=== PATIENT | female | born 1985 | race American Indian/Alaskan Native ===

== ENCOUNTER 2016-06-16 07:39 | Emergency (ER) | payer MEDICARE, MEDICAID ==
[2016-06-16 07:54] VITALS: BP 139/81
--- NOTE | 2016-06-16 11:44 | Emergency Department Report ---
Entered by KIMO CURTIS, acting as scribe for LINUS SCHMITZ PA. - General Chief Complaint: Upper Respiratory Infection Stated Complaint: COUGH Time Seen by Provider: 06/16/16 11:15 Source: patient Mode of arrival: Ambulatory Limitations: No Limitations - History of Present Illness Initial Comments: 30 y/o female presents to the ED c/o non-productive cough beginning 2 weeks ago. The patient states she had the flu at the time of onset, but the other symptoms have resolved. Associated symptom of headache with the cough, but she denies fever, chills, nausea, vomiting, diarrhea, abdominal pain, chest pain, SOB, wheezing, and numbness. MD Complaint: cough (non-productive) -: week(s) (2 weeks ago) Severity: moderate Consistency: constant Improves With: nothing Worsens With: nothing Context: other (patient had the flu 2 weeks ago, other symptoms have resolved, cough continues to linger) Associated Symptoms: headache (with cough), cough. denies: fever, chills, rhinorrhea, nasal congestion, sore throat, chest pain, shortness of breath, abdominal pain, nausea, vomiting, diarrhea, ear pain Treatments Prior to Arrival: none - Related Data Previous Rx's Medication Instructions Recorded Last Taken Type Promethazine /Codeine 10 ml PO Q6H PRN #150 ml 06/16/16 Unknown Rx [Phenergan/Codeine 6.25-10 mg/5 ml] Allergies Allergy/AdvReac Type Severity Reaction Status Date / Time No Known Allergies Allergy Verified 06/16/16 07:50 ED Review of Systems Constitutional: denies: chills, fever ENT: denies: ear pain, throat pain Respiratory: cough (non-productive). denies: shortness of breath, wheezing Cardiovascular: denies: chest pain Gastrointestinal: denies: abdominal pain, nausea, vomiting, diarrhea Neurological: headache (with cough). denies: weakness, numbness ED Past Medical Hx - Past Medical History Additional medical history: morbid obesity - Surgical History Additional Surgical History: C SECTION x 2 - Social History Smoking Status: Current Every Day Smoker Substance Use Type: Alcohol - Medications Home Medications: Home Medications Medication Instructions Recorded Confirmed Last Taken Type Promethazine /Codeine 10 ml PO Q6H PRN #150 ml 06/16/16 Unknown Rx [Phenergan/Codeine 6.25-10 mg/5 ml] ED Physical Exam - General Limitations: No Limitations - Other Other exam information: GENERAL: Patient is alert and oriented x 3. No apparent distress, normal gait, atraumatic. HEAD: Head is normocephalic and atraumatic. EYES: Extraocular movements are intact. Pupils are equal, round, and reactive to light and accommodation. EARS: Symmetrical, atraumatic, non tender, ear canal clear with moderate cerumen , tympanic membrane non inflamed. Gross auditory nml bilaterally. NOSE: Nose symmetrical, nontender. Nares appeared normal. MOUTH:Mouth is well hydrated and without lesions. Mucous membranes are moist. Uvula midline. Tongue not elevated. Posterior pharynx clear, no exudate or lesions. Tonsils are not erythematous or swollen. Patent airway. NECK: Supple. Non edematous, no carotid bruits. No lymphadenopathy or thyromegaly. LUNGS: Symmetrical with respiration. No wheezing, rales or crackles, CTAB. Noted the patient has a dry cough at the time of the exam. Patient is not in any respiratory distress. HEART: Regular rate and rhythm with normal S1/S2 present. No murmurs, rubs, or gallops. ABDOMEN: Soft, nondistended. Nontender to palpation on all quadrants. No organomegaly was noted. Positive bowel sounds. No CVA tenderness. EXTREMITIES/MUSCULOSKELETAL: No cyanosis, clubbing, rash, lesions or edema. Full ROM bilaterally. UE/LE Pulses 2+ bilaterally. LE and UE 5+ strength bilaterally SKIN: Warm and dry. No lesions, ulceration or induration present NEUROLOGIC: No focal deficit., ED Course Vital Signs 06/16/16 07:45 Temperature 98.3 F Pulse Rate 81 Respiratory 20 Rate Blood Pressure 139/81 O2 Sat by Pulse 100 Oximetry ED Medical Decision Making - Medical Decision Making Patient was evaluated by the provider in fast track. 30 y/o female presents complaining of non-productive cough beginning 2 weeks ago. Imaging is not necessary following Hx and exam. Discussed with the patient to follow up with a PCP as referred, and to return to the ED if her symptoms return or worsen. The patient states understanding and will follow instructions. Vital signs stable and patient is in no acute distress with no respiratory distress. ED Disposition Clinical Impression: Cough Disposition: DISCHARGED TO HOME OR SELFCARE Is pt being admited?: No Does the pt Need Aspirin: No Condition: Stable Instructions: Narcotic-Antitussive/Expectorant (By mouth) Additional Instructions: Is taking cough medication as prescribed. Prescriptions: Promethazine /Codeine [Phenergan/Codeine 6.25-10 mg/5 ml] 10 ml PO Q6H PRN #150 ml PRN Reason: cough Referrals: PRIMARY CARE, [Primary Care Provider] - 3-5 Days Forms: Work/School Release Form(ED) This documentation as recorded by the KIRSTEN mims GRACE,accurately reflects the service I personally performed and the decisions made by me,LINUS SCHMITZ PA.
== END 2016-06-16 11:45 | disposition home or self-care (01) ==
LOC: ED 07:39
DX: R05 Cough (principal); E66.01 Morbid (severe) obesity due to excess calories; F17.200 Nicotine dependence, unspecified, uncomplicated
CPT/HCPCS: 99282